=== PATIENT | female | born 1935 | race Caucasian/White ===

== ENCOUNTER 2018-03-03 01:42 | Inpatient (IN) | payer OTHER, MEDICARE ==
[~2018-03-03] VITALS: Ht 162.6 cm; Wt 67.1 kg
[~2018-03-03 01:42] MED LIST: ALBUTEROL1.25 MG/1 INH/SOL; ALBUTEROL2.5 MG/3 M INH; AMLODIPINE-BEN1 EAC4 PO; AMLODIPINE-BEN1 EAC5 PO; AMLODIPINE10 MG PO; ATORVASTATIN CA20 M1 PO; CEFUROXIME250 M1 PO; CHILDREN'S ASPI81 M1 PO; CLOPIDOGREL75 M1 PO; COZAAR100 M1 PO; CRESTOR 10MG10 MG PO; GUAIFENESIN ER600 MG PO; INCRUSE ELLI62.5 MCG PO; LABETALOL HCL100 M1 PO; LABETALOL HCL200 M1 PO; LORAZEPAM0.5 M1 PO; LOSARTAN POTASS50 M1 PO; OCUVITE SOFTGE1 EACH PO; PAROXETINE HYDR10 MG PO; PERCOCET 325 MG1 TA2 PO; PREDNISONE10 M2 PO; SENNA PLUS TAB1 EACH PO; SPIRIVA18 MCG INH; TYLENOL WITH C1 EACH PO; VENTOLIN HFA18 GM INH; WELLBUTRIN XL300 M2 PO; ZETIA10 M1 PO; ZITHROMAX500 M2 PO
--- NOTE | 2018-03-03 10:29 | Operative Report ---
Operative/Inv Procedure Report Surgery Date: 03/03/18 Name of Procedure: left carotid CEA, with external jugular vein patch Pre-Operative Diagnosis: Critical stenosis left carotid Post-Operative Diagnosis: same Estimated Blood Loss: less than 50ml Surgeon/Vp Lab: Aec Ross MD, Dr Anesthesia: local monitored anesthesi Complications: none Condition: good Operative Indication: worsening left carotid plaque Operative/Procedure Note Note: The patient Was correctly identified and brought to the operating room. The cervical block was administered without any complications. Patient remained hemodynamically stable. The left side of the neck and chest were sterilely prepped and a change fashion. An incision was made over the sternocleidomastoid muscle carried out to the carotid sheath. The common external and internal carotid arteries were dissected. The vagus nerve was identified including the hypoglossal. The patient was heparinized with 5000 units of intravenous heparin. Proximal distal control was performed. This is followed by a arteriotomy and endarterectomy. The external jugular vein had been dissected it was reversed and used as a patch with 6-0 Prolene. Blood flow was reconstituted to the external carotid artery followed by the internal. The patient remained alert moving all extremities and talking throughout the whole procedure. Hemostasis was achieved and the wound was closed in 2 layers. The patient was taken to the recovery room area in a satisfactory condition. Findings: Severe critical stenosis with multifocal nodular plaque. Discharge Disposition: PACU CC: Mihir CORBETT,Santos Landry
[2018-03-03 12:58] VITALS: BP 144/60
--- NOTE | 2018-03-03 13:00 | Admission Core Measures ---
Acute Coronary Syndrome (CM) ACS Core Measures Acute Coronary Syndrome Diagnosis No Congestive Heart Failure (NEW) CHF Core Measures Congestive Heart Failure Diagnosis No Cerebrovascular Accident (NEW) CVA Core Measures CVA/TIA Diagnosis No Venous Thromboembolism VTE Core Emy (View Protocol) VTE Risk Factors Surgery No Mechanical VTE Prophylaxis d/t N/A MechProphylax Ordered No VTE Pharm Prophylaxis d/t NA PharmProphylax ordered Problem List As ranked by this Provider includes Assessment & Plan 1. S/P carotid endarterectomy 2. Left carotid artery stenosis HOME MEDS Home Med List Albuterol Sulfate 2.5 MG/3 ML VIAL.NEB 3 ML INH TID COPD Albuterol Sulfate (Ventolin Hfa) 18 GM HFA.AER.AD 2 PUF INH Q4-6 PRN PRN SHORTNESS OF BREATH Amlodipine Besylate/Benazepril (Amlodipine-Benazepril 10-40 MG) 10 MG-40 MG CAPSULE 1 CAP PO DAILY BP (Reported) Aspirin (Children's Aspirin) 81 MG TAB.CHEW 1 TAB PO DAILY HEART HEALTH ( Reported) Atorvastatin Calcium 20 MG TABLET 1 TAB PO DAILY CHOLESTEROL (Reported) Bupropion HCl (Wellbutrin XL) (Unknown Strength) TAB.ER.24H 150 MG PO DAILY UNKNOWN (Reported) Clopidogrel Bisulfate (Clopidogrel) 75 MG TABLET 1 TAB PO DAILY BLOOD THINNER (Reported) Ezetimibe (Zetia) 10 MG TAB 1 TAB PO DAILY CHOLESTEROL (Reported) LABETALOL HCL (Labetalol Hydrochloride) 100 MG TABLET 1 TAB PO BID BP ( Reported) Lorazepam 0.5 MG TABLET 1 TAB PO BID PRN ANXIETY (Reported) Tiotropium [place] (Spiriva) 18 MCG CAP.W.DEV 1 PUF INH DAILY COPD Umeclidinium [place] (Incruse Ellipta) 62.5 MCG BLST.W.DEV 1 INH PO DAILY BREATHING PROBLEMS (Reported)
--- NOTE | 2018-03-03 13:00 | PN- Vascular Surgery ---
Subjective Subjective: Patient states she feels well. Pain is well controlled. She is c/o of a dry throat. She is tolerating ice chips. She denies voiding, difficulty speaking/ seeing, numbness or weakness. She offers no other complaints. Patient reports smoking 5 cigarrets/day. Objective Vital Signs and I&Os Vital Signs Date Time Temp Pulse Resp B/P B/P Pulse O2 O2 Flow FiO2 Mean Ox Delivery Rate 03/03 1258 98.0 56 20 144/60 95 Non 2.0L ReBreather Physical Exam: Gen - nad with 2L supplemental O2 via nc in place Neck - L dressing in place, middle aspect mildly saturated with serosanguineous drainage and marked, mild swelling, no signs of infection, active drainage or hemtoma noted Cardiac - S1S2 noted Lungs - CTAB Ext - right-sided a-line in place, alps in place, no edema or calf tenderness Current Medications: Current Medications Sig/Debra Start time Last Medication Dose Route Stop Time Status Admin Acetaminophen 650 MG Q6P PRN 03/03 1245 AC PO Albuterol Sulfate 3 ML Q6 PRN 03/03 1145 AC INH Albuterol Sulfate 2 PUF Q4 PRN 03/03 1145 AC INH Amlodipine Besylate 10 MG DAILY 03/04 1000 AC PO Aspirin 81 MG DAILY 03/04 1000 AC PO Atorvastatin Calcium 20 MG 1700 03/03 1700 AC PO Bupropion HCl 150 MG DAILY 03/04 1000 AC PO Cefazolin Sodium 2 GM IQ8 03/03 1600 AC N/A 1 UNIT IV 03/04 0029 Dextrose/Sodium 1,000 ML .Q20H 03/03 1245 AC Chloride IV Ezetimibe 10 MG DAILY 03/04 1000 AC PO Labetalol HCl 100 MG BID 03/03 2200 AC PO Lisinopril 10 MG DAILY 03/04 1000 AC PO Lorazepam 0.5 MG BID PRN 03/03 1145 AC PO 03/10 1144 Morphine Sulfate 2 MG Q2P PRN 03/03 1245 AC IV Ondansetron HCl 4 MG Q6P PRN 03/03 1245 AC IV Oxycodone/ 1 TAB Q4P PRN 03/03 1245 AC Acetaminophen PO Oxycodone/ 2 TAB Q4P PRN 03/03 1245 AC Acetaminophen PO Tiotropium [place] 1 PUF DAILY 03/04 1000 AC INH Assessment/Plan Assessment/Plan 82 F smoker with a h/o HTN, HLD, COPD, CKD II, h/o of stroke, anxiety and macular degeneration POD 0 s/p L carotid CEA with external jugular vein patch Cont clears, IVF Postop abx - ancef x2 Pain regimen prn Keep HOB elevated 30 degrees DVT ppx - alps, asa 81 tomorrow am Home meds ordered Nicotine patch ordered Monitor postop void TRC, encourage IS Core Measures Venous Thromboembolism VTE Risk Factors Surgery No Mechanical VTE Prophylaxis d/t N/A MechProphylax Ordered No VTE Pharm Prophylaxis d/t NA PharmProphylax ordered
--- NOTE | 2018-03-03 13:05 | Surgical Discharge Summary ---
Visit Information Visit Dates Admission Date: 03/03/18 Discharge Date: 03/04/18 History of Present Illness Chief Complaint: Carotid stenosis Medical History Neurological: CVA, vertigo EENT: cataracts, hearing loss, macular degeneration Cardiovascular: CHF, hypertension, hyperlipidemia Respiratory: COPD, emphysema Gastrointestinal: POLYPS REMOVED Hepatic: NONE Renal: NONE Musculoskeletal: osteoarthritis, osteoporosis Psychiatric: anxiety Endocrine: NONE Blood Disorders: NONE Cancer(s): lung cancer HOUSE WORKER/Reproductive: NONE History of MRSA: No History of VRE: No History of CDIFF: No Isolation History: Standard Pneumonia Vaccine: 09/07/10 Influenza Vaccine: 08/29/15 Tetanus Vaccine: 01/21/12 Surgical History Pertinent Surgical History: cataract removal, BILAT HIP REPLACEMENT HYSTERECTOMY COLON RESECTION, L CEA 03/03/18 Family History Relations & Conditions If Any: Relation not specified for: *No pertinent family history Psychosocial History Who Do You Live With? Daughter Services at Home: Nursing What is Your Primary Language? Cymro Review of Systems: Refer to H&P Hospital Course Course Attending Physician: Ace Ross MD Primary Care Physician: Santos Ash MD Hospital Course: Patient was admitted to the hospital for an elective left carotid CEA, with external jugular vein patch. The procedure was tolerated well and patient was transferred to the ICU in stable condition. Diet was advanced and tolerated, and the patient voided spontaneously. At the time of hospital discharge, the vital signs were stable, neurovascular status was intact, and pain was controlled with the use of oral pain medications. Complications: None Allergies: Coded Allergies: Sulfa (Sulfonamide Antibiotics) (Intermediate, HYPERACTIVITY 10/19/16) iron (Intermediate, SEVERE CONSTIPATION 10/19/16) Significant Procedures: Left carotid CEA, with external jugular vein patch on 03/03/18 Disposition Summary Disposition Principal Diagnosis: Critical stenosis left carotid Additional Diagnosis: Same, s/p left carotid CEA, with external jugular vein patch Discharge Disposition: home or self care Discharge Instructions General Discharge Information Code Status: Full Code Patient's Diet: Heart healthy diet Patient's Activity: as tolerated. no heavy lifting. no strenuous activity. Follow-Up Instructions/Appts: [address] Ross Medications at Discharge Discharge Medications: Stop taking the following medications: Clopidogrel Bisulfate (Clopidogrel) 75 MG TABLET ORAL DAILY Continue taking these medications: Aspirin (Children's Aspirin) 81 MG TAB.CHEW 1 Tablet ORAL DAILY Labetalol HCl (Labetalol HCl) 100 MG TABLET 1 Tablet ORAL TWICE DAILY Ezetimibe (Zetia) 10 MG TABLET 1 Tablet ORAL DAILY Atorvastatin Calcium (Atorvastatin Calcium) 20 MG TABLET 1 Tablet ORAL DAILY Qty = 30 Lorazepam (Lorazepam) 0.5 MG TABLET 1 Tablet ORAL TWICE DAILY as needed for ANXIETY Qty = 60 Umeclidinium [place] (Incruse Ellipta) 62.5 MCG BLST.W.DEV 1 Inhalation ORAL DAILY Qty = 30 Albuterol Sulfate (Ventolin Hfa) 18 GM HFA.AER.AD 2 Puff Inhale through mouth EVERY 4-6 HOURS NEEDED as needed for SHORTNESS OF BREATH Qty = 1 Comments: Last Taken:NOT TAKEN IN HOSPITAL Time: Albuterol Sulfate (Albuterol Sulfate) 2.5 MG/3 ML VIAL.NEB 3 Milliliters Inhale through mouth THREE TIMES DAILY Qty = 1 Comments: Last Taken:10/28/16 Time:1352 Tiotropium [place] (Spiriva) 18 MCG CAP.W.DEV 1 Puff Inhale through mouth DAILY Qty = 1 Comments: Last Taken: NOT GIVEN IN HOSPITAL Time: Bupropion HCl (Wellbutrin XL) (Unknown Strength) TAB.ER.24H 150 Milligram ORAL DAILY Amlodipine Besylate/Benazepril (Amlodipine-Benazepril 10-40 MG) 10 MG-40 MG CAPSULE 1 Capsule ORAL DAILY Start taking the following new medications: Oxycodone HCl/Acetaminophen (Percocet 5-325 MG Tablet) 5 MG-325 MG TABLET 1 Tablet ORAL EVERY 4-6 HOURS NEEDED as needed for pain control Qty = 20 No Refills Instructions: tylenol alternatively. do not combine. Copies To: Mihir CORBETT,Santos Landry
[2018-03-03 16:00] VITALS: BP 150/70
[2018-03-03 19:32] VITALS: BP 170/90
[2018-03-04] VITALS: BP 158/68
[2018-03-04 05:29] LABS: ABSOLUTE BASOPHIL COUNT 0 /CUMM (0.0-0.2); ABSOLUTE EOSINOPHIL COUNT 0 /CUMM (0.0-0.7); ABSOLUTE GRANULOCYTE CT 9.2 /CUMM (1.4-6.5); ABSOLUTE LYMPH COUNT 0.6 /CUMM (1.2-3.4); ABSOLUTE MONOCYTE COUNT 0.5 /CUMM (0.10-0.60); BASOPHIL % 0 % (0.0-2.0); EOSINOPHIL % 0.1 % (0-5); GRANULOCYTE % 89.5 % (42.2-75.2); HEMATOCRIT 37.1 % (37-47); MEAN CORPUSCULAR HGB 28.3 PG (27.0-31.0); MEAN CORPUSCULAR HGB CONC 32.6 G/DL (33.0-37.0); MEAN CORPUSCULAR VOLUME 86.9 FL (81.0-99.0); MEAN PLATELET VOLUME 8.5 FL (7.4-10.4); PLATELET COUNT 198 /CUMM (130-400); RBC DISTRIBUTION WIDTH 14.9 % (11.5-14.5); RED BLOOD CELL CT 4.27 /CUMM (4.20-5.40); WHITE BLOOD CELL COUNT 10.3 /CUMM (4.8-10.8)
--- NOTE | 2018-03-04 05:42 | PN- General Surgery ---
Subjective Subjective: 82-year-old female status post left carotid endarterectomy currently in the ICU. Patient states that she has been restless throughout the night having difficulty sleeping but overall he also well. Patient states her mouth is very dry although she has been taking by mouth's. Blood pressure was running high overnight with systolic into the 200s Review of Systems: Constitutional: No chills no fever no weakness HEENT: No blurred vision visual changes no throat pain nasal pain CV: denies chest pain edema orthopnea syncopal episode no peripheral edema Respiratory: No cough hemoptysis shortness of breath or wheeze GI: No abdominal pain bloating constipation or diarrhea or bloody stools no vomiting Musculoskeletal: No neck pain back pain or joint swelling Skin: No recent acute changes in skin Neurological: No dizziness weakness or acute mental status changes Objective Vital Signs and I&Os Vital Signs Date Time Temp Pulse Resp B/P B/P Pulse O2 O2 Flow FiO2 Mean Ox Delivery Rate 03/04 0400 Room Air 03/04 0327 80 182/72 03/04 0123 82 200/68 03/04 0000 96 Nasal 2.0L Cannula 03/04 0000 98.4 63 23 158/68 96 Nasal 2.0L Cannula 03/03 2136 70 17 189/57 04/ 2107 96 Nasal 2.0L Cannula 03/03 2000 96 Nasal 2.0L Cannula / 1932 98.9 64 18 170/90 97 04/05 1600 100 Nasal 2.0L Cannula / 1600 98.3 64 18 150/70 97 Nasal 2.0L Cannula 03/03 1320 Nasal 2.0L Cannula 03/03 1258 98.0 56 20 144/60 95 Non 2.0L ReBreather Intake & Output 03/04 0800 / 0000 03/03 1600 03/03 0800 03/03 0000 03/02 1600 Intake Total 1390.7 1099 Output Total 350 Balance 1040.7 1099 Intake, IV 550.7 299 Intake, Oral 840 800 Output, Urine 350 Physical Exam: PATIENT is alert and oriented 3 answering questions. She is moving all extremities without deficits. HEENT within normal limits Neck incision scant drainage on the dressing with Tegaderm covering Chest clear to auscultation symmetric Heart regular rate and rhythm without murmurs rubs gallops Lower extremities no edema no tenderness Current Medications: Current Medications Sig/Dbera Start time Last Medication Dose Route Stop Time Status Admin Acetaminophen 650 MG Q6P PRN 03/03 1245 AC PO Acetaminophen 1,000 MG .STK-MED ONE 03/03 1010 DC IV 03/03 1011 Albuterol Sulfate 3 ML BID 03/03 2200 AC 04 INH 2058 Albuterol Sulfate 3 ML Q6 PRN 03/03 1145 DC INH Albuterol Sulfate 2 PUF Q4 PRN 03/03 1145 AC INH Amlodipine Besylate 10 MG DAILY 03/04 1000 AC PO Aspirin 81 MG DAILY 03/04 1000 AC PO Atorvastatin Calcium 20 MG 1700 03/03 1700 AC 04 PO 1749 Bupropion HCl 150 MG DAILY 03/04 1000 AC PO Cefazolin Sodium 2 GM IQ8 03/03 1600 DC 03/04 N/A 1 UNIT IV 03/04 0029 0003 Dexmedetomidine HCl 200 MCG .STK-MED ONE 03/03 0704 DC IV 03/03 0705 Dextrose/Sodium 1,000 ML .Q20H 03/03 1245 AC 03/03 Chloride IV 1750 Ezetimibe 10 MG DAILY 03/04 1000 AC PO Fentanyl Citrate 250 MCG .STK-MED ONE 03/03 06 DC IM 03/03 06 Hydralazine HCl 10 MG ONCE ONE 03/04 0330 DC 03/04 IV 03/04 0331 0327 Hydralazine HCl 10 MG ONCE ONE 03/04 0130 DC 04 IV 03/04 0131 0123 Labetalol HCl 100 MG BID 03/03 2200 AC 03/03 PO 2136 Lisinopril 10 MG DAILY 03/04 1000 AC PO Lorazepam 0.5 MG BID PRN 03/03 1145 AC 04 PO 03/10 1144 2336 Midazolam HCl 2 MG .STK-MED ONE 03/03 626 DC IM 03/03 06 Morphine Sulfate 2 MG Q2P PRN 03/03 1245 AC IV Nicotine 14 MG DAILY 03/03 1316 AC 03/03 TOP 1749 Nitroglycerin 0.4 MG .STK-MED ONE 03/03 627 DC SL 03/03 0628 Ondansetron HCl 4 MG Q6P PRN 03/03 1245 AC IV Oxycodone/ 1 TAB Q4P PRN 03/03 1245 AC 03/03 Acetaminophen PO 2208 Oxycodone/ 2 TAB Q4P PRN 03/03 1245 AC Acetaminophen PO Protamine Sulfate 50 MG .STK-MED ONE 03/03 0628 DC IV 03/03 06 Tiotropium [place] 1 PUF DAILY 03/04 1000 AC INH Results Last 48 Hours of Labs: Laboratory Tests 03/04 0415 Chemistry Sodium Pending Potassium Pending Chloride Pending Carbon Dioxide Pending Anion Gap Pending BUN Pending Creatinine Pending BUN/Creatinine Ratio Pending Hematology CBC w Diff Pending WBC Pending RBC Pending Hgb Pending Hct Pending MCV Pending MCH Pending MCHC Pending RDW Pending Plt Count Pending MPV Pending Gran % Pending Lymphocytes % Pending Monocytes % Pending Eosinophils % Pending Basophils % Pending Absolute Granulocytes Pending Absolute Lymphocytes Pending Absolute Monocytes Pending Absolute Eosinophils Pending Absolute Basophils Pending Assessment/Plan Assessment/Plan Postop day 1 status post left carotid endarterectomy Plan advance diet Out of bed with progressive ambulation Control of blood pressure overnight with hydralazine 10 mg IV We will continue to monitor her BP throughout the day with hopes of discharge Labs are pending for this morning Core Measures Venous Thromboembolism VTE Risk Factors No risk factors No Mechanical VTE Prophylaxis d/t LowRisk-No Interven Req'd No VTE Pharm Prophylaxis d/t LowRisk-No Interven Req'd
[2018-03-04 08:00] VITALS: BP 160/80
--- NOTE | 2018-03-04 08:47 | Patient Discharge Instructions ---
Discharge Instructions General Discharge Information You were seen/treated for: Critical stenosis left carotid artery You had these procedures: Surgery Date: 03/03/18 Name of Procedure: left carotid CEA, with external jugular vein patch Watch for these problems: fever>101.3, increased pain, redness/swelling/drainage, dizziness, shortness of breath, chest pains, weakness No bath, but you may shower: Yes Other wound care: ok to remove dressing tomorrow. leave white steri strips in place. keep incision clean & dry. Diet Continue normal diet: Yes Recommended Diet: Heart Healthy Activity Full Activity/No Limits: No Activity Self Limited: Yes Pounds, do NOT lift more than: 10 Other activity limits: no heavy lifting. no strenuous activity. Acute Coronary Syndrome Inclusion Criteria At DC or during hospital stay patient has or had the following: ACS DIAGNOSIS No Discharge Core Measures Meds if any: Prescribed or Continued at Discharge Meds if any: NOT Prescribed or Continued at Discharge Congestive Heart Failure Inclusion Criteria At DC or during hospital stay patient has or had the following: CHF DIAGNOSIS No Discharge Core Measures Meds if any: Prescribed or Continued at Discharge Meds if any: NOT Prescribed or Continued at Discharge Cerebrovascular accident Inclusion Criteria At DC or during hospital stay patient has or had the following: CVA/TIA Diagnosis No Discharge Core Measures Meds if any: Prescribed or Continued at Discharge Meds if any: NOT Prescribed or Continued at Discharge Venous thromboembolism Inclusion Criteria VTE Diagnosis No VTE Type NONE VTE Confirmed by (Test) NONE Discharge Core Measures - Per Current guidelines, there needs to be overlap - treatment for the first 5 days of Warfarin therapy. - If discharged on Warfarin prior to 5 days of - overlap therapy, the patient will need to be - assessed for post discharge needs including - *Post discharge parental anticoagulation - *Warfarin and/or parental anticoagulation education - *Follow up date to check INR post discharge At least 5 days overlap therapy as Inpatient No Meds if any: Prescribed or Continued at Discharge Note: Overlap Therapy is Warfarin and Anticoagulant Meds if any: NOT Prescribed or Continued at Discharge
[2018-03-04] MEDS ORDERED: PERCOCET 5-3251 EACH PO (08:55)
[2018-03-04 12:00] VITALS: BP 150/60
== END 2018-03-04 14:30 | DRG 39 ==
LOC: CRI 01:42 → SDA 01:42 → ENRESERV 10:44 → ENTRNSPT 11:28 → EDTRNSPTSTS 11:53 → EDTRNSPT 11:53 → CMPTRNSPT 12:08 → CRI 12:25
PROVIDERS: Physician Assistant Surgical
PROC: 03UN0JZ Supplement Left External Carotid Artery with Synthetic Substitute, Open Approach (ICD-10-PCS; principal; 2018-03-03)
PROC: 3E0T3BZ Introduction of Anesthetic Agent into Peripheral Nerves and Plexi, Percutaneous Approach (ICD-10-PCS; principal; 2018-03-03)
PROC: 03CN0ZZ Extirpation of Matter from Left External Carotid Artery, Open Approach (ICD-10-PCS; principal; 2018-03-03)
DX: I65.22 Occlusion and stenosis of left carotid artery (principal); J44.9 Chronic obstructive pulmonary disease, unspecified; I35.0 Nonrheumatic aortic (valve) stenosis; I12.9 Hypertensive chronic kidney disease with stage 1 through stage 4 chronic kidney disease, or unspecified chronic kidney disease; N18.2 Chronic kidney disease, stage 2 (mild); F17.200 Nicotine dependence, unspecified, uncomplicated; Z85.118 Personal history of other malignant neoplasm of bronchus and lung; E78.5 Hyperlipidemia, unspecified; Z86.73 Personal history of transient ischemic attack (TIA), and cerebral infarction without residual deficits; I71.4 Abdominal aortic aneurysm, without rupture; Z86.718 Personal history of other venous thrombosis and embolism; Z79.01 Long term (current) use of anticoagulants; I70.213 Atherosclerosis of native arteries of extremities with intermittent claudication, bilateral legs; F41.9 Anxiety disorder, unspecified; H35.30 Unspecified macular degeneration; Z90.710 Acquired absence of both cervix and uterus; Z90.49 Acquired absence of other specified parts of digestive tract; Z79.82 Long term (current) use of aspirin; Z79.51 Long term (current) use of inhaled steroids; Z96.643 Presence of artificial hip joint, bilateral; M19.91 Primary osteoarthritis, unspecified site; M81.0 Age-related osteoporosis without current pathological fracture
CPT/HCPCS: 70557; CCU; 82436; C9399; J0131; J0690; J2720; J3490; J7042